=== PATIENT | male | born 1955 | race Caucasian/White ===

== ENCOUNTER 2024-01-20 06:48 | Outpatient (CLI) | payer MEDICARE, SELFPAY ==
--- NOTE | ~2024-01-20 | MR_ITS ---
MRI of the brain Clinical History: Headache Technique: Axial and sagittal T1-weighted images were acquired. These were followed by axial T2-weigh dang, diffusion weighted, gradient, and FLAIR images. Following intravenous administration of 14 cc Mu ltiHance gadolinium, T1-weighted fat-sat imaging was performed in the axial and coronal planes. Findings: Single small focus of FLAIR hyperintensity noted in the right frontal subcortical white mat ter. No other signal reality seen in the brain parenchyma. No acute infarct, intracranial hemorrhage, or mass lesion. Ventricles and subarachnoid spaces are unremarkable. Orbits are unremarkable. Paranasal sinuses and m astoid air cells are clear. Major intracranial flow voids are intact. Sagittal midline structures are intact. No abnormal postcontrast enhancement identified. IMPRESSION: No significant abnormality. Probable single small focus of chronic microvascular ischemic change, as above. Reviewed, dictated and finalized at location . IMPRESSION: No significant abnormality. Probable single small focus of chronic microvascula r ischemic change, as above.
== END 2024-01-20 06:49 | disposition home or self-care (01) ==
LOC: CHSIMG 06:51
PROVIDERS: PCP Family Medicine; Visit Provider Family Medicine
DX: R51.9 Headache, unspecified (principal)
CPT/HCPCS: 70553

== ENCOUNTER 2025-02-02 19:24 | Emergency (ER) | payer MEDICARE, SELFPAY ==
[2025-02-02 19:25] VITALS: BP 148/86; PULSE 69; RESP 16; TEMP 36.5; O2SAT 94
--- NOTE | 2025-02-02 19:27 | ED.DENTAL ---
HPI - Dental/Oral General Chief complaint: Dental/Oral Stated complaint: dental pain Time Seen by Provider: 02/02/25 19:27 Source: patient Mode of arrival: ambulatory Limitations: no limitations History of Present Illness HPI Narrative: Patient is a 69-year-old male with left lower jaw pain for the past few days. He has an appointment to see his dentist tomorrow. Dentist sent him in to get antibiotics. Specifically, it is the left lower back teeth and some white Changes of the gum line appreciated per the patient. MD Complaint: tooth pain Location: Tooth # ( 17 18) Onset (ago): day(s) (2) Duration: constant Severity: moderate Severity scale (1-10): 6 Relieving factors: nothing Exacerbating factors: chewing, cold, heat and drinking fluids Context: history of dental caries Associated symptoms: gum swelling Treatment prior to arrival: oral analgesic Related Data Allergies Allergy/AdvReac Type Severity Reaction Status Date / Time No Known Allergies Allergy Verified 02/02/25 20:21 Review of Systems Review of Systems: All systems reviewed & are unremarkable except as noted in HPI and below Constitutional: Constitutional: Reports no additional constitutional complaints Eyes: Eyes: Reports no additional eye complaints ENT: Reports system reviewed and no additional complaints, except as documented Cardiovascular: Cardiovascular: Reports no additional cardiovascular complaints Respiratory: Respiratory: Reports no additional respiratory complaints Gastrointestinal: Gastrointestinal: Reports no additional gastrointestinal complaints Genitourinary: Genitourinary: Reports no additional male genitourinary complaints Musculoskeletal: Musculoskeletal: Reports no additional musculoskeletal complaints Integumentary/Breasts: Skin/Breast: Reports system reviewed and no additional complaints, except as docu Neurologic: Reports system reviewed and no additional complaints, except as documented Psychiatric: Psychiatric: Reports no additional psychiatric complaints Endocrine: Endocrine: Reports no additional endocrine complaints Hematologic/Lymphatic: Hematologic/Lymphatic: Reports no additional hematologic/lymphatic complaints Allergic/Immunologic: Allergic/Immunologic: Reports no additional allergic/immunologic complaints Exam Const: General: healthy appearing Nutritional Appearance: well nourished Orientation/consciousness: patient oriented x3 HENMT: Head: normal to inspection Ears: external ears normal Face/Nose/Sinus: Normal external nose present Other: left lower teeth 17 and 18 have tender teeth and some decay with gum line whitening and no abscess Eyes: Conjunctivae: conjunctivae normal Pupils: Equal, round and reactive pupils present EOM: EOMs intact bilaterally Neck: Neck: normal visual inspection Chest: Chest palpation & inspection: normal inspection of the chest Resp: Effort & Inspection: normal respiratory effort and not labored Auscultation: clear to auscultation bilaterally and no crackles Cardio: Rate: regular rate Rhythm: regular rhythm Heart sounds: no murmurs GI: Inspection: non-distended GI Palp: Yes Soft to palpation and No Tenderness to palpation present (GI) Auscultation: normal bowel sounds : General: Yes bladder normal to palpation Back/Spine/Pelvis: Back: no CVA tenderness Skin: General skin exam: normal color Rashes: no rashes Wounds: no wounds Neuro: General: patient oriented x3, moves all extremities and no meningeal signs Cranial nerves: Yes Nystagmus not present Extrem: General: normal to inspection Psych: Mental Status: mental status grossly normal Affect: normal affect Attitude: cooperative Course Vital Signs Vital signs: Vital Signs Temperature 36.5 C 02/02/25 19:25 Pulse Rate 69 02/02/25 19:25 Respiratory Rate 16 02/02/25 19:25 Blood Pressure 148/86 H 02/02/25 19:25 Pulse Oximetry 94 02/02/25 19:25 Oxygen Delivery Room Air 02/02/25 19:25 Temperature 36.5 C 02/02/25 19:25 Pulse Rate 69 02/02/25 19:25 Respiratory Rate 16 02/02/25 19:25 Blood Pressure 148/86 H 02/02/25 19:25 Pulse Oximetry 94 02/02/25 19:25 Oxygen Delivery Room Air 02/02/25 19:25 MDM - Dental/Oral MDM Narrative Medical decision making narrative: patient is a 69-year-old male with left lower jaw pain and dental complaints. We will do Augmentin and Ultram. Dentist as planned for the morning. Discharge Plan Discharge Clinical Impression: Mandible pain Patient Disposition: Home Condition: Stable Instructions: Antibiotic Form, Toothache (ED) Patient Language: Bulgarian Prescriptions: New amoxicillin-pot clavulanate 875-125 mg tablet 1 tablet PO BID 10 Days Qty: 20 0RF tramadol 50 mg tablet 50 mg PO Q8H PRN (Reason: pain) Qty: 20 0RF Follow-up/Referrals: Foreign Dominguez MD [Primary Care Provider] - Time of Disposition: 21:00
--- OUTSIDE RECORDS SUMMARY | 2025-02-02 19:27 | XMS_ITS | Patient Health Record ---
Author Organization [facility] Address [address] [address] Care Team Providers Care Air Operations Manager Name Role Phone Hudson Dejesus DO Primary Care Provider [facility] [phone] Reason For Referral No Information Plan Of Treatment No Information Insurance Providers Payer Name Payer Address Payer Phone Subscriber Number Group Number Insured Name Patient Relationship to Insured Coverage Start Date Coverage End Date [employer] [id number] [address] [place] [phone] [id number] Self - patient is the insured 2
== END 2025-02-02 20:25 | disposition home or self-care (01) ==
PROVIDERS: Emergency Provider Emergency Medicine; PCP Family Medicine
DX: R68.84 Jaw pain (principal)
CPT/HCPCS: 99283; A9270